=== PATIENT | male | born 1950 | race African-American/Black ===

== ENCOUNTER 2023-12-09 15:36 | Emergency (ER) | payer MEDICARE, MEDICAID ==
[~2023-12-09] VITALS: Ht 172.7 cm; Wt 82.0 kg
[2023-12-09] MEDS ORDERED: htn med PO (15:39)
[2023-12-09 15:42] VITALS: TEMP 99.1
[2023-12-09 20:38] VITALS: BP 145/84; PULSE 77; RESP 16
== END 2023-12-09 20:54 | disposition home or self-care (01) ==
LOC: EMS 15:38
DX: J02.9 Acute pharyngitis, unspecified (principal); E78.00 Pure hypercholesterolemia, unspecified; I10 Essential (primary) hypertension; Z86.73 Personal history of transient ischemic attack (TIA), and cerebral infarction without residual deficits
CPT/HCPCS: 70490; 87430; 99284; Z7502